=== PATIENT | female | born 1950 | race Caucasian/White ===

== ENCOUNTER 2021-04-18 11:31 | Emergency (ER) | payer MEDICARE, OTHER ==
[~2021-04-18] VITALS: Ht 177.8 cm; Wt 125.7 kg
[2021-04-18 11:48] VITALS: BP 153/78
[2021-04-18 12:37] LABS: BASOPHILS % (AUTO) 0.8 % (0-1); EOSINOPHILS # (AUTO) 0.2 X10'3 (0-0.9); EOSINOPHILS % (AUTO) 4.2 % (0-6); HEMATOCRIT 43.8 % (35.0-45.0); HEMOGLOBIN 14.9 g/dl (12.0-16.0); LYMPHOCYTES # (AUTO) 0.8 X10'3 (1.1-4.8); LYMPHOCYTES % (AUTO) 16.3 % (21-51); MEAN CORPUSCULAR HEMOGLOBIN 31.1 PG (27.0-31.0); MEAN CORPUSCULAR HGB CONC 34.1 g/dL (33.0-36.5); MEAN CORPUSCULAR VOLUME 91.3 FL (78-98); MEAN PLATELET VOLUME 8.3 FL (7.4-10.4); MONOCYTES # (AUTO) 0.5 X10'3 (0-0.9); MONOCYTES % (AUTO) 10.7 % (2-12); NEUTROPHILS # (AUTO) 3.4 X10'3 (1.8-7.7); PLATELET COUNT 225 X10'3 (140-440); RED CELL DISTRIBUTION WIDTH 14.3 % (11.5-14.5)
[2021-04-18 12:53] LABS: PARTIAL THROMBOPLASTIN TIME 27 SECONDS (22-32)
[2021-04-18] MEDS ORDERED: iohexol 350MG/ML 100ml bottle IV ONE (13:13)
[2021-04-18 13:18] LABS: ALANINE AMINOTRANSFERASE 60 U/L (12-78); ALKALINE PHOSPHATASE 114 IU/L (46-116); ANION GAP 12 (8-16); ASPARTATE AMINO TRANSFERASE 52 U/L (10-37); BILIRUBIN,TOTAL 0.8 MG/DL (0.1-1.0); BLOOD UREA NITROGEN 14 MG/DL (7-18); CALCIUM 9.6 MG/DL (8.5-10.1); CHLORIDE 101 MMOL/L (99-107); SODIUM 139 MMOL/L (135-145); TOTAL CARBON DIOXIDE 26.3 MMOL/L (24-32); eGFR 83 ML/MIN
[2021-04-18 13:23] LABS: GLUCOSE 103 MG/DL (70-104)
[2021-04-18] MEDS ORDERED: CYCL-1 PO (15:53)
== END 2021-04-18 16:11 | disposition home or self-care (01) ==
LOC: ER 11:32
DX: M54.2 Cervicalgia (principal); R51.9 Headache, unspecified; Z88.2 Allergy status to sulfonamides; Z79.899 Other long term (current) drug therapy; Z98.891 History of uterine scar from previous surgery
CPT/HCPCS: 36415; 70496; 70498; 80053; 85025; 85610; 85730; 99285; Q9967

== ENCOUNTER 2021-07-17 12:26 | Emergency (ER) | payer MEDICARE, OTHER ==
[~2021-07-17] VITALS: Ht 177.8 cm; Wt 129.1 kg
[~2021-07-17 12:26] MED LIST: CYCL-1 PO
[2021-07-17 13:24] VITALS: BP 166/73
[2021-07-17] MEDS ORDERED: TRAM50TA2 PO (14:14)
[2021-07-17] MEDS ORDERED: NAPR-56 PO (14:14)
== END 2021-07-17 14:32 | disposition home or self-care (01) ==
LOC: ER 12:27
DX: M17.11 Unilateral primary osteoarthritis, right knee (principal); M71.21 Synovial cyst of popliteal space [Baker], right knee; Z88.2 Allergy status to sulfonamides; Z79.899 Other long term (current) drug therapy; Z98.891 History of uterine scar from previous surgery
CPT/HCPCS: 73564; 93971; 99284

== ENCOUNTER 2025-05-07 15:57 | Emergency (ER) | payer MEDICARE, OTHER ==
[~2025-05-07] VITALS: Ht 180.3 cm; Wt 94.0 kg
[2025-05-07 16:00] VITALS: BP 146/59; PULSE 70; RESP 17; TEMP 96.3; O2SAT 96
--- NOTE | 2025-05-07 16:30 | Physician Documentation ---
History of Present Illness ~ Chief Complaint: Ear Pain Stated Complaint: RT EAR BLEEDING Time Seen by MD: 17:23 HPI Patient is a 74-year-old female that presents to the emergency department for evaluation of bleeding right ear with a small little skin tag to the outer rim of the ear that has just a trickle of blood for the last couple hours. Patient tried to go into urgent Care but was unable to get in. No other acute concerns Medication Reconciliation Allergies: Coded Allergies: Sulfa (Sulfonamide Antibiotics) (Verified Allergy, Intermediate, HIVES AND NAUSEA, 12/14/15) Scheduled Cyclobenzaprine* (Cyclobenzaprine*), 1 TAB PO TID Past Medical History Past Medical History: No Pertinent History Past Surgical History: Alcohol Use: Rarely Lives In: Home Review of Systems All Other Systems at this time: Reviewed and Negative ENT: Reports: see HPI Physical Exam Vital Signs: RN Vital Signs have been reviewed: Yes, Temperature: 96.3, Heart Rate: 70, Respiratory Rate: 17, BP: 146/59, Pulse Oximetry: 96, Weight: 94.000 Physical Exam General: Alert, no apparent distress. HEENT: PERRL, EOMI, no injection, moist mucous membranes. Small cutaneous skin tag to the outer pinna of the right ear with a small [place] with bleeding Neck: Full range of motion. Respiratory: Lungs clear, no respiratory distress. Chest: No accessory muscle use. Cardiovascular: Regular rate and rhythm, no murmurs. Neurologic: Oriented x4. Psychiatric: Normal mood and affect. Skin: Normal color, warm and dry. No edema, no ecchymosis. Progress Results/Orders Results/Orders Orders - RUTH RAMIREZ NP Silver Nitrate Applicator (Silver Nitrat (05/07/25 17:25) Vital Signs 05/07/25 16:00 Temp 96.3 Pulse 70 Resp 17 B/P (MAP) 146/59 Pulse Ox 96 Medical Decision Making Findings Small tag to ear use silver nitrate for bleeding control patient to follow up with primary care and dermatology for potential removal of tag. Patient states this has happened before. Departure Time of Disposition: 17:30 Disposition: 01 HOME / SELF CARE / HOMELESS Impression: Primary Impression: Skin abnormality Condition: Stable Discharge Instructions: Bleeding Varicose Veins Additional Instructions: Be gentle with that ear monitor for any new or worsening symptoms. If it does bleed put pressure on it for 10 minutes. If it does not. For pressure on it for another 10 minutes prior to following up with urgent care ER. Referrals: NO PRIMARY CARE PROVIDER (PCP) Education Educated: Patient Educated regarding: diagnosis, treatment, need for follow up Signature Scribe Signature: No scribe Attestation: The note accurately reflects work and decisions made by me.Ruth Ramirez - SPECIAL SERVICES AGENT 05/07/25 17:30 JEROMY GARRISON SPECIAL SERVICES AGENT May 07, 2025 16:30 RUTH RAMIREZ NP May 07, 2025 17:30
== END 2025-05-07 17:50 | disposition home or self-care (01) ==
LOC: ER 15:57
DX: Q82.9 Congenital malformation of skin, unspecified (principal); H92.01 Otalgia, right ear; Z88.2 Allergy status to sulfonamides; Z79.899 Other long term (current) drug therapy
CPT/HCPCS: 99282